=== PATIENT | male | born 1935 | race Caucasian/White ===

== ENCOUNTER 2019-11-05 23:48 | Inpatient (IN) | payer MEDICARE ==
[~2019-11-05] VITALS: Ht 182.9 cm; Wt 92.0 kg
[2019-11-06 00:20] LABS: BASO # 0.1 (0.0-0.2); BASO % 0.5 % (0.0-2.0); EOS # 0.1 (0.0-0.7); GRAN # 8.2 (1.4-6.5); GRAN % 77.6 % (42.2-75.2); HEMATOCRIT 45.5 % (42.0-52.0); HEMOGLOBIN 15.1 g/dl (13.5-18.0); INR 2.8 (0.8-3.0); LYMPH # 1.3 (1.2-3.4); LYMPH % 12.3 % (20.0-51.0); MEAN CELL VOLUME 93 fl (80.0-100.0); MEAN CORPUSCULAR HEMOGLOBIN 31 pg (27.0-31.0); MEAN CORPUSCULAR HGB CONC 33 g/dl (33.0-37.0); MEAN PLATELET VOLUME 11.4 fl (7.4-10.4); MONO # 0.9 (0.1-0.6); MONO % 8.2 % (1.7-9.3); PLATELET COUNT 257 K/mm3 (130-400); PROTHROMBIN TIME 33.3 SECONDS (9.7-12.8); RED BLOOD COUNT 4.88 M/mm3 (4.20-5.60); REDCELL DISTRIBUTION WIDTH-CV 13.5 % (11.5-14.5)
[2019-11-06 00:24] LABS: ALANINE AMINOTRANSFERASE 13 U/L (21-72); ALBUMIN 3.8 gm/dL (3.5-5.0); ALKALINE PHOSPHATASE 95 U/L (50-136); ANION GAP 11 mmol/L (7-16); AST,SGOT 15 U/L (15-37); BILIRUBIN,TOTAL 0.4 mg/dL (0.0-1.0); BLOOD UREA NITROGEN 32 mg/dL (9-20); CALCIUM 8.7 mg/dL (8.4-10.2); CARBON DIOXIDE 21 mmol/L (22-30); CHLORIDE 107 mmol/L (98-107); CREATININE, serum 1.65 (0.66-1.25); GLUCOSE 374 mg/dL (74-106); POTASSIUM 5.3 mmol/L (3.4-5.0); SODIUM 138 mmol/L (137-145); TOTAL PROTEIN 6.9 gm/dL (6.4-8.2)
[2019-11-06 00:35] LABS: TROPONIN-I < 0.012 ng/mL (0.000-0.035)
[2019-11-06] MEDS ORDERED: COUMADIN 5MG5 MG/TAB PO (01:00)
[2019-11-06] MEDS ORDERED: ARICEPT10 MG PO (01:01)
[2019-11-06] MEDS ORDERED: DITROPAN XL10 MG PO (01:01)
[2019-11-06] MEDS ORDERED: HYZAAR 25 MG-101 TAB PO (01:02)
--- NOTE | 2019-11-06 03:18 | NUR ---
PT ADMITTED TO ROOM 313 FROM ER PER CART. PT ORIENTED TO SELF AND PLACE ONLY. SLURRED SPEECH. SEE NEUROCHECK. IV NS AT 150CC/HR TO RT F/A. PT INCONT OF URINE. WEARS BRIEFS. WET AT THIS TIME. HX BLADDER INCONTINENCE.
[2019-11-06] MEDS ORDERED: GLUCOPHAGE1000 MG PO (03:32)
[2019-11-06] MEDS ORDERED: GLUCOTROL 5M5 MG/TAB PO (03:34)
[2019-11-06 04:40] VITALS: BP 119/60; PULSE 68; TEMP 98.3
[2019-11-06 08:47] VITALS: BP 133/66; PULSE 68; TEMP 98.2
[2019-11-06 09:45] LABS: CALCIUM 7.6 mg/dL (8.4-10.2); CREATININE, serum 1.34 (0.66-1.25); POTASSIUM 4.4 mmol/L (3.4-5.0)
[2019-11-06] MEDS ORDERED: DITROPAN 5MG TAB5 MG PO (11:10)
[2019-11-06] MEDS ORDERED: MULTI VITAMINS1 TAB PO (11:12)
--- NOTE | 2019-11-06 11:16 | NUR ---
De Icer Kit Assembler attended rounds with the clinical team. Patient to receive PT/ST today. SW met with patient to discuss discharge planning. Patient lives outside of [place], [place] with his , Carly. Patient could not recall her phone number at this time but states his work phone number is [phone]. Patient sees Dr. Aguiar for primary care and obtains medications from [facility] pharmacy with no difficulties. Patient does not use any DME. Patient reports he does not have Advance Directives but may be interested in setting them up after speaking with his . SW to continue to follow as needed.
[2019-11-06 12:39] VITALS: BP 125/62; PULSE 54; TEMP 98.3
--- NOTE | 2019-11-06 12:40 | NUR ---
Received malnutrition screen for existing tube feeding, however per discussion with patient's nurse, this was entered inaccurately. No other malnutrition risks indicated upon admission.
[2019-11-06 13:13] VITALS: BP 176/92; PULSE 82
--- NOTE | 2019-11-06 13:30 | NUR ---
At 1300 CURRICULUM COACH was in room with patient and yelled out to the desk for assistance. Entered room and patient was observed to be having a seizure. This lasted approximately 1 minute. Did resolve and patient began to blink eyes and follow commands. He was alert and oriented 10 minutes later. Answered questions appropriately and was understandable even with speech difficutlies. He does deny having seizure disorder. Did notify primary nurse and she came to assess patient.
--- NOTE | 2019-11-06 15:14 | NUR ---
SW met with the patient to discuss a discharge plan. The patient lives in [place] with his , Carly. The patient does not use DME and reports independence with ADLs. The patient's PCP is Dr. Aguiar and patient receives medications from [facility] with no difficulties. The patient does not have advanced directives in the EMR. The patient has a son, Fortino who also provides support, if needed. Upon discharge the patient will be transported home by his or son. donor services technician will continue to follow to ensure a safe discharge.
--- NOTE | 2019-11-06 15:36 | NUR ---
THIMAINE WAS ADMINSTERED, NOW INFUSING IV KEPPRA. NEUROS UNREMARKABLE. MINIMAL POST-ICTAL MENTAL STATUS CHANGES NOTED
--- NOTE | 2019-11-06 15:54 | NUR ---
PT REF LACTULOSE THIS AFTERNOON, STATED THAT SHE HAD 3 LARGE BM'S THIS AFTERNOON
[2019-11-06 16:34] VITALS: BP 122/84; PULSE 69; TEMP 98
--- NOTE | 2019-11-06 18:40 | NUR ---
PT SCOOTED OUT OF RECLINER AND LANDED ON COCCYX. CHAIR ALARM HAS BEEN ON AND UNDER PT ALL DAY, ALARM SOUNDED. THIS NURSE AND BRUSHER MACHINE ASSISTED PT TO COUCH, THEN LATER TO BED, PT WAS FALLING ASLEEP ON COUCH AND LEANING BENT OVER FORWARD. THIS NURSE NOTIFIED PROVIDER, NO NEW ORDERS, HEALTH SCREENER AND PT . PT DENIED C/O PAIN. APPEARED MORE SLEEPY THEN HAD EARLIER IN DAY, ALSO RECIEVED NEW MEDICATION DOSE OF KEPPRA THIS AFTERNOON. VITALS WNL, NEUROS UNREMARKABLE.
--- NOTE | 2019-11-06 20:30 | NUR ---
Initial shift assessment done- has been resting well, drowsy but wakes up- oriented follows commands- equal hand grasps- very slight trouble finding the right words- incontinent of large amount urine- bed changed-cleaned up. Bed alarm on. Tele on, IV fluids of NS at 150cc/hr
[2019-11-06 20:40] VITALS: BP 139/76; PULSE 75; TEMP 97.8
[2019-11-07 00:15] VITALS: BP 129/71; PULSE 69; TEMP 98.4
[2019-11-07 04:37] VITALS: BP 121/77; PULSE 75; TEMP 97.8
--- NOTE | 2019-11-07 06:02 | NUR ---
Quiet night- slept majority of the night- incontinent of large amounts of urine throughout the night- bed changedx2,, oriented to person/place- understands he is in the hospital - did not try to get out of bed- compliant-overall pleasant
[2019-11-07 06:29] LABS: BASO # 0.1 (0.0-0.2); BASO % 0.6 % (0.0-2.0); EOS # 0.2 (0.0-0.7); EOS % 2.3 % (0-4.0); GRAN # 7.1 (1.4-6.5); HEMATOCRIT 39.9 % (42.0-52.0); LYMPH # 1.3 (1.2-3.4); MEAN CELL VOLUME 96 fl (80.0-100.0); MEAN CORPUSCULAR HEMOGLOBIN 31 pg (27.0-31.0); MEAN CORPUSCULAR HGB CONC 33 g/dl (33.0-37.0); MEAN PLATELET VOLUME 11.6 fl (7.4-10.4); MONO % 10.6 % (1.7-9.3); PLATELET COUNT 225 K/mm3 (130-400); RED BLOOD COUNT 4.16 M/mm3 (4.20-5.60); REDCELL DISTRIBUTION WIDTH-CV 13.6 % (11.5-14.5)
[2019-11-07 06:47] LABS: INR 2.6 (0.8-3.0); PROTHROMBIN TIME 31.2 SECONDS (9.7-12.8)
[2019-11-07 07:13] LABS: CALCIUM 8.1 mg/dL (8.4-10.2); CREATININE, serum 1.4 (0.66-1.25); MAGNESIUM 1.4 mg/dL (1.6-2.3); POTASSIUM 3.9 mmol/L (3.4-5.0)
[2019-11-07 08:06] VITALS: BP 140/78; PULSE 66; TEMP 98.3
[2019-11-07 10:34] LABS: MAGNESIUM 1.5 mg/dL (1.6-2.3)
--- NOTE | 2019-11-07 11:33 | NUR ---
The patient is needing post acute rehab. MATTHIEU presented Medicare.gov's list of Inpatient Rehab and nursing homes. The patient's first choice is IPR at [facility] and second choice is [facility]. MATTHIEU informed Larisa, IPR Director and faxed referral to [facility]. SW awaiting responses. MATTHIEU attempted to contact, the patient's , Carly to inform her. There was no answer. manager support services will continue to follow.
[2019-11-07 12:05] VITALS: BP 136/84; PULSE 64; TEMP 98
[2019-11-07 13:17] LABS: CHOLESTEROL RISK RATIO 3.3
[2019-11-07 16:20] VITALS: BP 136/68; PULSE 57; TEMP 97.5
--- NOTE | 2019-11-07 16:28 | NUR ---
MATTHIEU contacted the patient's , Carly at at work and at home . She was in agreeance to post acute rehab. business services specialist sales will continue to follow.
--- NOTE | 2019-11-07 19:34 | NUR ---
PT HAD UNEVENTFUL DAY. PLEASENT AND COOPERTATIVE WITH CARES. WORKED WITH PT/OT THIS SHIFT.
--- NOTE | 2019-11-07 20:38 | NUR ---
Pt sleeping- easily arousable. No distress noted. Pt is oriented x4. Neuro check within normal limits. Seizure pads placed due to hx of seizure during stay. Respirations even and unlabored. Lungs clear. Abdomen distended, firm. BS+. No edema noted. Pt is incontient. Pt denies pain at this time. Pt has not eaten any of dinner. He states he is not hungry at this time.
[2019-11-07 21:18] VITALS: BP 132/60; PULSE 64; TEMP 97.8
[2019-11-08] VITALS (7 sets, daily range): BP systolic 132–153; BP diastolic 70–84; PULSE 52–71; TEMP 97.6–98.6
--- NOTE | 2019-11-08 01:54 | NUR ---
Promise DURAN called. Patients HR dropping in low 40s when sleeping. Pt is asymptomatic and HR increases into the 60s while awake. Call parameters changed to <40.
--- NOTE | 2019-11-08 05:45 | NUR ---
Pt sleeping. No distress noted. Easily arousable. Pt is alert and oriented. No neuro deficits noted. Seizure pads in place. Bed alarm on. No needs noted.
--- NOTE | 2019-11-08 07:20 | NUR ---
Report given to Stacie BRAGG.
[2019-11-08 09:16] LABS: BASO # 0.1 (0.0-0.2); BASO % 0.8 % (0.0-2.0); EOS # 0.2 (0.0-0.7); EOS % 2.4 % (0-4.0); GRAN # 4.7 (1.4-6.5); GRAN % 71.6 % (42.2-75.2); HEMATOCRIT 40.1 % (42.0-52.0); HEMOGLOBIN 13.1 g/dl (13.5-18.0); LYMPH % 14.7 % (20.0-51.0); MEAN CELL VOLUME 95 fl (80.0-100.0); MEAN CORPUSCULAR HEMOGLOBIN 31 pg (27.0-31.0); MEAN CORPUSCULAR HGB CONC 33 g/dl (33.0-37.0); MEAN PLATELET VOLUME 11.2 fl (7.4-10.4); MONO # 0.7 (0.1-0.6); MONO % 10.2 % (1.7-9.3); PLATELET COUNT 229 K/mm3 (130-400); RED BLOOD COUNT 4.22 M/mm3 (4.20-5.60); REDCELL DISTRIBUTION WIDTH-CV 13.3 % (11.5-14.5)
[2019-11-08 09:28] LABS: INR 2.6 (0.8-3.0); PROTHROMBIN TIME 31.3 SECONDS (9.7-12.8)
[2019-11-08 09:31] LABS: CALCIUM 8.5 mg/dL (8.4-10.2); CREATININE, serum 1.37 (0.66-1.25); POTASSIUM 4.4 mmol/L (3.4-5.0)
--- NOTE | 2019-11-08 10:00 | NUR ---
Pt assessment completed and charted. Morning medications administered per JAN. Pt A&O, easily arousable. LS cta, breathing even and unlabored. Heart RRR. BSx4. Pulses strong bilaterally. Pt denies pain at this time, pt denies dizziness, SOB, N/V/D. LFA INT IV flushes w/o complications. Seizure precaution pads in place. Neuro checks WNL. No other concerns expressed at this time. Call light within reach.
--- NOTE | 2019-11-08 18:23 | NUR ---
Pt assisted in showering, linen changed. No further concerns expressed.
--- NOTE | 2019-11-08 20:30 | NUR ---
Initial shift assessment done- denies pain, Tele on, pleasant, oriented, follows commands- equal hand grasps,, weakness, unstable gait when up- bed alarm on--incontinent of urine-cleaned up-bed changed
[2019-11-09 04:16] VITALS: BP 151/83; PULSE 66; TEMP 98.4
[2019-11-09 08:02] VITALS: BP 134/77; PULSE 74; TEMP 98.4
[2019-11-09 10:02] LABS: BASO % 0.6 % (0.0-2.0); EOS # 0.2 (0.0-0.7); EOS % 2.2 % (0-4.0); GRAN # 5.3 (1.4-6.5); GRAN % 73.3 % (42.2-75.2); HEMATOCRIT 40.9 % (42.0-52.0); HEMOGLOBIN 13.3 g/dl (13.5-18.0); LYMPH % 13.6 % (20.0-51.0); MEAN CELL VOLUME 95 fl (80.0-100.0); MEAN CORPUSCULAR HEMOGLOBIN 31 pg (27.0-31.0); MEAN CORPUSCULAR HGB CONC 33 g/dl (33.0-37.0); MEAN PLATELET VOLUME 11.8 fl (7.4-10.4); MONO # 0.7 (0.1-0.6); MONO % 9.9 % (1.7-9.3); PLATELET COUNT 238 K/mm3 (130-400); RED BLOOD COUNT 4.31 M/mm3 (4.20-5.60); REDCELL DISTRIBUTION WIDTH-CV 13.4 % (11.5-14.5)
[2019-11-09 10:17] LABS: CALCIUM 8.7 mg/dL (8.4-10.2); CREATININE, serum 1.53 (0.66-1.25); POTASSIUM 4.8 mmol/L (3.4-5.0)
--- NOTE | 2019-11-09 10:47 | NUR ---
Pt assessment completed and charted. Morning medications administered per JAN. Pt A&O, laying in bed. Pt denies pain at this time. Pt on room air, denies SOB, dizziness, chest pain, palpitations. Neuro checks WNL. LFA INT IV flushes w/o complications. Pt on tele. Pulses strong. Pt is incontinent, unable to collect sample for lab but per pt he "knows when he needs to go". Heart RRR, breathing even and unlabored. BS x4. Pulses strong bilaterally. LS clear. No other concerns noted.
[2019-11-09 11:24] VITALS: BP 137/88; PULSE 67; TEMP 98.3
[2019-11-09 16:30] VITALS: BP 141/63; PULSE 63; TEMP 98.4
--- NOTE | 2019-11-09 17:29 | NUR ---
Pt assisted to chair, incontinent in brief. Linen and brief change. Pt unable to tell nursing staff when he needs to go.
[2019-11-09 19:46] VITALS: BP 116/65; PULSE 52; TEMP 98
[2019-11-09 23:48] VITALS: BP 120/56; PULSE 87; TEMP 98.4
[2019-11-10 03:57] VITALS: BP 117/79; PULSE 75; TEMP 97.9
--- NOTE | 2019-11-10 04:07 | NUR ---
ASSESSMENT COMPLETE. SITTING ON BESIDE EATING DINNER. DENIES NEEDS AT THIS TIME.
[2019-11-10 06:33] LABS: COLLECTION METHOD CLEAN CATCH
[2019-11-10 06:41] LABS: PH 5 (5-8); SQUAMOUS EPITHELIAL None Seen /hpf; URINE APPEARANCE Clear; URINE BACTERIA None Seen /hpf; URINE BILIRUBIN Negative (NEGATIVE); URINE BLOOD Negative (NEGATIVE); URINE COLOR Yellow; URINE GLUCOSE 1+ (NEGATIVE); URINE KETONE Negative (NEGATIVE); URINE LEUKOCYTE ESTERASE Negative (NEGATIVE); URINE NITRATE Negative (NEGATIVE); URINE PROTEIN(semi-quant) Negative (NEGATIVE); URINE RBC 0-2 /hpf; URINE UROBILINOGEN Negative (NEGATIVE)
[2019-11-10 07:12] VITALS: BP 138/82; PULSE 69; TEMP 98.2
[2019-11-10 07:29] LABS: BASO # 0.1 (0.0-0.2); BASO % 0.9 % (0.0-2.0); EOS # 0.2 (0.0-0.7); EOS % 2.6 % (0-4.0); GRAN # 4.7 (1.4-6.5); GRAN % 68.9 % (42.2-75.2); HEMATOCRIT 39.9 % (42.0-52.0); HEMOGLOBIN 13.1 g/dl (13.5-18.0); LYMPH % 15.1 % (20.0-51.0); MEAN CELL VOLUME 94 fl (80.0-100.0); MEAN CORPUSCULAR HEMOGLOBIN 31 pg (27.0-31.0); MEAN CORPUSCULAR HGB CONC 33 g/dl (33.0-37.0); MEAN PLATELET VOLUME 11.6 fl (7.4-10.4); MONO # 0.8 (0.1-0.6); MONO % 11.9 % (1.7-9.3); PLATELET COUNT 235 K/mm3 (130-400); RED BLOOD COUNT 4.23 M/mm3 (4.20-5.60); REDCELL DISTRIBUTION WIDTH-CV 13.2 % (11.5-14.5)
[2019-11-10 07:42] LABS: CALCIUM 8.5 mg/dL (8.4-10.2); CREATININE, serum 1.66 (0.66-1.25); POTASSIUM 4.4 mmol/L (3.4-5.0)
[2019-11-10] MEDS ORDERED: ASPIRIN E.C. 8181 MG PO (08:24)
[2019-11-10] MEDS ORDERED: KEPPRA1000 MG PO (08:24)
[2019-11-10 08:45] LABS: INR 1.9 (0.8-3.0); PROTHROMBIN TIME 22.4 SECONDS (9.7-12.8)
--- NOTE | 2019-11-10 09:29 | NUR ---
Assessment completed, alert/oriented although difficult to assess orientation as patient is very sarcastic and jokes a lot, vital sign stable, denies any pain or discomfort, no neuro deficits noted, no weakness or physcial asymmetry observed, he is sitting up eating breakfast at this time, refusing any hygiene this morning, denies needs and hoping to go home
--- NOTE | 2019-11-10 10:45 | NUR ---
SW attended clinical rounds. The patient is to tentatively discharge today. Larisa, IPR Director, reports that they are not able to accept the patient and that time. MATTHIEU contacted and faxed updates to Cassie at [facility]. MATTHIEU met with the patient to update. The patient is in agreeance to going to [facility], if able to accept. MATTHIEU presented and explained the IM form to the patient. The patient verbalized understanding, signed, and he was provided a copy. MATTHIEU attempted to contact the patient's to update. There was no voicemail. SW to continue to follow.
[2019-11-10 11:38] VITALS: BP 122/60; PULSE 62; TEMP 97.9
--- NOTE | 2019-11-10 12:00 | NUR ---
Cassie, at [facility], reports that they are able to accept the patient for a skilled stay. MATTHIEU informed the patient and his , via phone. The patient is to discharge today, 11/10, to [facility] for a skilled stay. Transportation was scheduled for 1430, via [facility]. MATTHIEU informed the patient, his RN, and his via phone. They were all in agreeance to the time. No additional needs at this time.
[2019-11-10 14:22] VITALS: BP_SYST 0
--- NOTE | 2019-11-10 15:18 | NUR ---
Patient transferring to [facility], report called to receiving nursing staff at this time, IV and tele removed prior to discharge, leaving with [facility] staff member
== END 2019-11-10 15:22 | DRG 65 ==
LOC: COL.ER 23:48 → MEDICAL 11-06 01:34
PROVIDERS: Emergency Medicine; Nurse Practitioner Family; ADMIT Student in an Organized Health Care Education/Training Program
DX: I63.9 Cerebral infarction, unspecified (principal); D68.61 Antiphospholipid syndrome; N17.9 Acute kidney failure, unspecified; G31.9 Degenerative disease of nervous system, unspecified; Z86.73 Personal history of transient ischemic attack (TIA), and cerebral infarction without residual deficits; I48.91 Unspecified atrial fibrillation; Z79.01 Long term (current) use of anticoagulants; F02.80 Dementia in other diseases classified elsewhere, unspecified severity, without behavioral disturbance, psychotic disturbance, mood disturbance, and anxiety; R56.9 Unspecified convulsions; E83.42 Hypomagnesemia; N18.9 Chronic kidney disease, unspecified; I12.9 Hypertensive chronic kidney disease with stage 1 through stage 4 chronic kidney disease, or unspecified chronic kidney disease; G83.24 Monoplegia of upper limb affecting left nondominant side; E11.22 Type 2 diabetes mellitus with diabetic chronic kidney disease; E87.5 Hyperkalemia; E11.65 Type 2 diabetes mellitus with hyperglycemia; Z90.79 Acquired absence of other genital organ(s); Z79.84 Long term (current) use of oral hypoglycemic drugs
CPT/HCPCS: 99232-AI; 99239; A9585; J1815; J1953; J3411; J3475; J7030; Q9967

== ENCOUNTER → 2021-08-29 | Outpatient (CLI) | payer MEDICARE ==
[~2021-08-29] MED LIST: ARICEPT10 MG PO; ASPIRIN E.C. 8181 MG PO; COUMADIN 5MG5 MG/TAB PO; DITROPAN 5MG TAB5 MG PO; DITROPAN XL10 MG PO; GLUCOPHAGE1000 MG PO; GLUCOTROL 5M5 MG/TAB PO; HYZAAR 25 MG-101 TAB PO; KEPPRA1000 MG PO; MULTI VITAMINS1 TAB PO
== END ==
LOC: ZLAB.STJ 17:20 → ZCOL.LAB 17:20
DX: E11.22 Type 2 diabetes mellitus with diabetic chronic kidney disease (principal); F03.91 Unspecified dementia, unspecified severity, with behavioral disturbance

== ENCOUNTER 2021-10-26 11:41 | Emergency (ER) | payer MEDICARE ==
[~2021-10-26] VITALS: Ht 182.9 cm; Wt 102.3 kg
[2021-10-26 12:07] VITALS: TEMP 98.3
[2021-10-26 12:31] LABS: BASO % 0.5 % (0.0-2.0); EOS # 0.3 K/mm3 (0.0-0.7); EOS % 3.9 % (0-4.0); GRAN # 6.3 K/mm3 (1.4-6.5); GRAN % 75.4 % (42.2-75.2); HEMATOCRIT 47.2 % (42.0-52.0); HEMOGLOBIN 15.6 g/dl (13.5-18.0); LYMPH % 11.5 % (20.0-51.0); MEAN CELL VOLUME 94 fl (80.0-100.0); MEAN CORPUSCULAR HEMOGLOBIN 31 pg (27.0-31.0); MEAN CORPUSCULAR HGB CONC 33 g/dl (33.0-37.0); MONO # 0.7 K/mm3 (0.1-0.6); MONO % 8.3 % (1.7-9.3); PLATELET COUNT 243 K/mm3 (130-400); RED BLOOD COUNT 5.03 M/mm3 (4.20-5.60); REDCELL DISTRIBUTION WIDTH-CV 13.7 % (11.5-14.5)
[2021-10-26 12:50] LABS: ALBUMIN 3.6 gm/dL (3.4-4.8); BILIRUBIN,TOTAL 0.6 mg/dL (0.2-1.2); CALCIUM 9.1 mg/dL (8.4-10.2); CREATININE, serum 1.55 mg/dL (0.72-1.25); POTASSIUM 4.7 mmol/L (3.5-4.5); TOTAL PROTEIN 7.3 gm/dL (6.2-8.1)
[2021-10-26 12:56] LABS: TROPONIN-I 0.011 ng/mL (0.00-0.033)
[2021-10-26 14:48] VITALS: BP 134/88; PULSE 100
== END 2021-10-26 14:45 | disposition home or self-care (01) ==
LOC: COL.ER 11:41
PROVIDERS: Physician Assistant
DX: I16.0 Hypertensive urgency (principal); I10 Essential (primary) hypertension; E11.9 Type 2 diabetes mellitus without complications; F03.90 Unspecified dementia, unspecified severity, without behavioral disturbance, psychotic disturbance, mood disturbance, and anxiety; Z86.73 Personal history of transient ischemic attack (TIA), and cerebral infarction without residual deficits; Z79.82 Long term (current) use of aspirin; Z79.01 Long term (current) use of anticoagulants; Z79.84 Long term (current) use of oral hypoglycemic drugs; Z79.899 Other long term (current) drug therapy
CPT/HCPCS: J0360

== ENCOUNTER → 2021-11-07 | Outpatient (CLI) | payer MEDICARE ==
[2021-11-07 17:11] LABS: CALCIUM 9.1 mg/dL (8.4-10.2); CREATININE, serum 1.56 mg/dL (0.72-1.25); POTASSIUM 5.5 mmol/L (3.5-4.5)
[2021-11-07 17:32] LABS: THYROID STIMULATING HORMONE 0.994 uIU/mL (0.350-4.940)
== END ==
LOC: ZLAB.STJ 16:51
PROVIDERS: Internal Medicine
DX: M62.81 Muscle weakness (generalized) (principal)

== ENCOUNTER → 2021-11-22 | Outpatient (CLI) | payer MEDICARE | LOC: COL.RAD 09:22 | DX: R22.41 Localized swelling, mass and lump, right lower limb (principal) ==

== ENCOUNTER → 2021-12-13 | Outpatient (CLI) | payer MEDICARE | LOC: ZLAB.STJ 16:49 | DX: E11.22 Type 2 diabetes mellitus with diabetic chronic kidney disease (principal); N18.9 Chronic kidney disease, unspecified ==

== ENCOUNTER → 2021-12-26 | Outpatient (CLI) | payer MEDICARE, MEDICAID ==
[2021-12-26 12:22] LABS: CLOSTRIDIUM DIFF A/B NEG; CLOSTRIDIUM DIFF A/B INTERP No C.diff present
== END ==
LOC: ZLAB.STJ 10:44
PROVIDERS: Internal Medicine
DX: Z01.89 Encounter for other specified special examinations (principal)

== ENCOUNTER 2022-07-18 08:29 | Inpatient (IN) | payer MEDICARE, MEDICAID ==
[2022-07-18] VITALS (10 sets, daily range): BP systolic 119–142; BP diastolic 71–96; PULSE 74–90; TEMP 97.7–99.1
[~2022-07-18] VITALS: Wt 94.8 kg
[2022-07-18 09:32] LABS: HEMATOCRIT 45.1 % (42.0-52.0); HEMOGLOBIN 14.1 g/dl (13.5-18.0); MEAN CELL VOLUME 98 fl (80.0-100.0); MEAN CORPUSCULAR HEMOGLOBIN 31 pg (27-31); MEAN CORPUSCULAR HGB CONC 31 g/dl (33.0-37.0); MEAN PLATELET VOLUME 10.9 fl (7.4-10.4); PLATELET COUNT 230 K/mm3 (130-400); RED BLOOD COUNT 4.59 M/mm3 (4.20-5.60)
[2022-07-18 09:58] LABS: ALBUMIN 3.2 gm/dL (3.4-4.8); BILIRUBIN,TOTAL 0.9 mg/dL (0.2-1.2); CALCIUM 8.9 mg/dL (8.4-10.2); POTASSIUM 4.2 mmol/L (3.5-4.5); TOTAL PROTEIN 6.6 gm/dL (6.2-8.1)
[2022-07-18 10:09] LABS: BAND 2 % (0-10); HYPOCHROMIA 2+; LYMPHOCYTE 1 % (20.0-51.0); NEUTROPHILS 97 % (42.0-75.2); PLATELET ESTIMATE NORMAL (NORMAL); TOXIC GRANULATION PRESENT
[2022-07-18 10:18] LABS: TSH w REFLEX 0.727 uIU/mL (0.350-4.940)
[2022-07-18 10:22] LABS: TROPONIN-I 0.045 ng/mL (0.00-0.033)
[2022-07-18 11:25] LABS: AMORPHOUS CRYSTAL Present (NOT PRESENT); MUCOUS Present (NOT PRESENT); SQUAMOUS EPITHELIAL 0-2 /hpf (0-10); URINE BACTERIA Moderate /hpf (NONE SEEN); URINE RBC >50 /hpf (0-2)
[2022-07-18 11:26] LABS: URINE APPEARANCE Hazy (CLEAR/HAZY); URINE COLOR Yellow (YELLOW); URINE GLUCOSE 2+ (NEGATIVE); URINE PROTEIN(semi-quant) 2+ (NEGATIVE)
[2022-07-18 11:27] LABS: URINE BLOOD 3+ (NEGATIVE); URINE KETONE TRACE (NEGATIVE); URINE NITRATE Positive (NEGATIVE); URINE UROBILINOGEN 0.2 E.U/dL (0.2-1.0)
[2022-07-18] MEDS ORDERED: APRESOLINE50 MG PO (12:30)
[2022-07-18] MEDS ORDERED: COUMADIN4 MG PO (12:31)
[2022-07-18] MEDS ORDERED: NORVASC 5MG5 MG/TAB PO (12:32)
[2022-07-18 12:33] LABS: INR 1.6 (0.8-3.0); PROTHROMBIN TIME 18.8 SECONDS (9.7-12.8)
[2022-07-18] MEDS ORDERED: COZAAR100 MG PO (12:33)
[2022-07-18] MEDS ORDERED: TYLENOL 325MG325 MG PO (13:12)
--- NOTE | 2022-07-18 16:20 | NUR ---
unavailable at the time for procedure, spoke with patients son-second DPOA. He agreed with having the procedure for stone removal and stent placement. Pt left for procedure at this time.
--- NOTE | 2022-07-18 22:05 | NUR ---
Patient assessed around 1954. Denies pain and discomfort. Peripheral IV to left hand, IV fluids running per orders. Has cough, unable to observe sputum. LS CTA in upper lobes, diminished in lower. On oxygen at 2 L/min via NC. Indwelling dumont catheter patent, with cloudy, tea colored urine. Voices no questions, needs, or concerns at this time. In bed with call light within reach. High fall risk precautions in place. Bed alarm on.
[2022-07-19 00:11] VITALS: BP 139/77; PULSE 76; TEMP 98.9
[2022-07-19 05:18] VITALS: BP 153/89; PULSE 91; TEMP 98.1
--- NOTE | 2022-07-19 05:45 | NUR ---
Received IV ABX and IV fluids per orders during the night. White catheter with kenn urine, sediment present. Continues on oxygen at 2 L/min via NC. In bed with call light within reach. High fall risk precautions in place. Bed alarm on.
[2022-07-19 06:36] LABS: HEMATOCRIT 37.1 % (42.0-52.0); MEAN CELL VOLUME 95 fl (80.0-100.0); MEAN CORPUSCULAR HEMOGLOBIN 31 pg (27-31); MEAN CORPUSCULAR HGB CONC 33 g/dl (33.0-37.0); MEAN PLATELET VOLUME 11.6 fl (7.4-10.4); PLATELET COUNT 199 K/mm3 (130-400); RED BLOOD COUNT 3.92 M/mm3 (4.20-5.60); REDCELL DISTRIBUTION WIDTH-CV 13.9 % (11.5-14.5)
[2022-07-19 06:38] LABS: INR 1.8 (0.8-3.0); PROTHROMBIN TIME 20.4 SECONDS (9.7-12.8)
[2022-07-19 06:57] LABS: ALBUMIN 2.8 gm/dL (3.4-4.8); CREATININE, serum 1.64 mg/dL (0.72-1.25); MAGNESIUM 1.7 mg/dL (1.6-2.6); PHOSPHOROUS 3.3 mg/dL (2.3-4.7); POTASSIUM 4.5 mmol/L (3.5-4.5)
[2022-07-19 06:58] LABS: HEMOGLOBIN 12.1 g/dl (13.5-18.0)
[2022-07-19 07:12] VITALS: BP 130/72; PULSE 69; TEMP 98.5
--- NOTE | 2022-07-19 08:00 | NUR ---
Patient is resting in bed, easily arousable. Alert but partially oriented. Telemetry in place, NSR. Catheter dumont in place, yellow cloudy output. Getting LR AR 125 ML/HR. Assessment completed, no other needs at this time. Call light within reach.
[2022-07-19 08:34] LABS: LYMPHOCYTE 10 % (20.0-51.0); NEUTROPHILS 84 % (42.0-75.2)
[2022-07-19 08:35] LABS: HYPOCHROMIA 1+; PLATELET ESTIMATE NORMAL (NORMAL)
--- NOTE | 2022-07-19 10:10 | NUR ---
Initial visit; Patient thanked Proctologist for looking in on him and offering Spiritual Care. Patient quiet and appears to be doing alright at this time.
[2022-07-19 11:28] LABS: COLLECTION METHOD CATHETER
[2022-07-19 11:49] VITALS: BP 129/73; PULSE 65; TEMP 97.6
--- NOTE | 2022-07-19 13:44 | NUR ---
Jewel Bearing Grinder contacted patient's son, Fortino (ph#[phone]) as patient has not been oriented. Fortino confirmed patient lives at [facility] and sees Dr. Aguiar for primary care. Fortino is in agreement with plan of discharge back to [facility] when medically ready for discharge. MATTHIEU contacted Calderon at [facility] and faxed clinical updates. MATTHIEU requested DPOA-HC paperwork be faxed in. Discharge Plan: [facility]
[2022-07-19 16:10] VITALS: BP 144/78; PULSE 73; TEMP 98.8
[2022-07-19 19:58] VITALS: BP 155/91; PULSE 76; TEMP 98.7
--- NOTE | 2022-07-19 22:47 | NUR ---
Patient assessed around 2039. Denies pain and discomfort when asked. On oxygen at 1 L/min via NC. BS was 100, scheduled to have 15 units of Levemir. Called APRIL Phillips. Order to hold Levemir tonight. Patient in bed with call light within reach. High fall risk precautions in place.
[2022-07-20 00:37] VITALS: BP 158/82; PULSE 70; TEMP 97.9
[2022-07-20 04:52] VITALS: BP 158/89; PULSE 69; TEMP 98.2
--- NOTE | 2022-07-20 05:43 | NUR ---
Patient continues on IV ABX per orders. Has voiced no questions, needs, or concerns at this time. Denies having pain and discomfort when asked. In bed with call light within reach. High fall risk precautions in place. Bed alarm on.
[2022-07-20 06:25] LABS: BASO # 0.1 K/mm3 (0.0-0.2); BASO % 0.6 % (0.0-2.0); EOS # 0.2 K/mm3 (0.0-0.7); EOS % 1.6 % (0.0-4.0); GRAN # 11.3 K/mm3 (1.4-6.5); GRAN % 81.5 % (42.2-75.2); HEMATOCRIT 38.5 % (42.0-52.0); HEMOGLOBIN 12.4 g/dl (13.5-18.0); LYMPH # 0.9 K/mm3 (1.2-3.4); LYMPH % 6.1 % (20.0-51.0); MEAN CELL VOLUME 95 fl (80.0-100.0); MEAN CORPUSCULAR HEMOGLOBIN 31 pg (27-31); MEAN CORPUSCULAR HGB CONC 32 g/dl (33.0-37.0); MEAN PLATELET VOLUME 11.2 fl (7.4-10.4); MONO # 1.3 K/mm3 (0.1-0.6); MONO % 9.6 % (1.7-9.3); PLATELET COUNT 198 K/mm3 (130-400); RED BLOOD COUNT 4.06 M/mm3 (4.20-5.60); REDCELL DISTRIBUTION WIDTH-CV 13.5 % (11.5-14.5)
[2022-07-20 06:46] LABS: ALBUMIN 2.8 gm/dL (3.4-4.8); CALCIUM 9.3 mg/dL (8.4-10.2); CREATININE, serum 1.37 mg/dL (0.72-1.25); MAGNESIUM 1.7 mg/dL (1.6-2.6); PHOSPHOROUS 3.1 mg/dL (2.3-4.7); POTASSIUM 4.4 mmol/L (3.5-4.5)
[2022-07-20 07:54] VITALS: BP 143/69; PULSE 63; TEMP 97.9
--- NOTE | 2022-07-20 10:56 | NUR ---
Business Associate faxed clinical updates to Calderon at [facility]. SW also faxed clinicals to [facility] for authorization for SNF upon discharge.
--- NOTE | 2022-07-20 11:01 | NUR ---
Patient alert to name and month/day of , unable to answer year. Alert to being in hospital. No complaints of pain. Patient with very flat affect, and withdrawn. Bowels active, urine draining into dumont bag yellow, cloudy. Patient resting in bed. discussed with provider discontinuing telemetry and switching iv meds to po, as patient's iv as infiltrated.
[2022-07-20 11:36] VITALS: BP 159/86; PULSE 67; TEMP 97.8
[2022-07-20 16:27] VITALS: BP 158/84; PULSE 69; TEMP 97.9
--- NOTE | 2022-07-20 17:49 | NUR ---
Patient very withdrawn today. Difficult to extract any interaction. Patient independently eats and drinks. However patient unaware of bowel movements in bed. Patient prefers to lay in bed almost sides ways, and sleep very contracted. White still in place, draining yellow urine, cloudy with sediment. No complaints of pain. No attempts to get out of bed. Fall precuations in place.
[2022-07-20 21:05] VITALS: BP 142/99; PULSE 67; TEMP 97.4
--- NOTE | 2022-07-21 00:20 | NUR ---
THE SHIFT ASSESSMENT WAS COMPLETED AT 09:15 PM. NO S/S OF DISTRESS NOTED UPON ASSESSMENT. THE PATIENT DOES NOT HAVE A PIV. THE PATIENT DENIED PAIN. CALL LIGHT WITHIN REACH WELL OTHER PERSONAL BELONGINGS.
[2022-07-21 00:29] VITALS: BP 156/89; PULSE 71; TEMP 97.4
[2022-07-21 04:06] VITALS: BP 149/86; PULSE 83; TEMP 98.2
--- NOTE | 2022-07-21 06:14 | NUR ---
THE PATIENT SLEPT WELL OVER NIGHT. NO S/S OF DISTRESS. THE PATIENT DENIED PAIN. CALL LIGHT WITHIN REACH AND BED IN LOW POSITION.
[2022-07-21 07:20] LABS: BASO # 0.1 K/mm3 (0.0-0.2); BASO % 0.6 % (0.0-2.0); EOS # 0.2 K/mm3 (0.0-0.7); EOS % 1.9 % (0.0-4.0); GRAN # 8.5 K/mm3 (1.4-6.5); GRAN % 79.8 % (42.2-75.2); HEMATOCRIT 41.6 % (42.0-52.0); HEMOGLOBIN 13.7 g/dl (13.5-18.0); LYMPH # 0.8 K/mm3 (1.2-3.4); LYMPH % 7.9 % (20.0-51.0); MEAN CELL VOLUME 94 fl (80.0-100.0); MEAN CORPUSCULAR HEMOGLOBIN 31 pg (27-31); MEAN CORPUSCULAR HGB CONC 33 g/dl (33.0-37.0); MEAN PLATELET VOLUME 11.1 fl (7.4-10.4); MONO % 9.3 % (1.7-9.3); PLATELET COUNT 217 K/mm3 (130-400); RED BLOOD COUNT 4.43 M/mm3 (4.20-5.60); REDCELL DISTRIBUTION WIDTH-CV 13.2 % (11.5-14.5)
[2022-07-21 07:23] LABS: INR 1.3 (0.8-3.0); PROTHROMBIN TIME 15.5 SECONDS (9.7-12.8)
[2022-07-21 07:44] LABS: CALCIUM 9.3 mg/dL (8.4-10.2); CREATININE, serum 1.22 mg/dL (0.72-1.25); MAGNESIUM 1.7 mg/dL (1.6-2.6); PHOSPHOROUS 2.9 mg/dL (2.3-4.7); POTASSIUM 4.5 mmol/L (3.5-4.5)
[2022-07-21 07:48] VITALS: BP 159/85; PULSE 74; TEMP 97.6
[2022-07-21] MEDS ORDERED: CEFTIN500 MG PO (08:22)
--- NOTE | 2022-07-21 10:00 | NUR ---
pt vss, alert and orient x1, deue medications given no adverse effects noted, denies complaints. dumont catheter removed without a problem pt given urinal bedside.
--- NOTE | 2022-07-21 10:08 | NUR ---
Follow-up visit; Patient thanked Apple Thinner for checking on him again today and said he thinks he is better. Apple Thinner wished patient well and offered God's blessings.
[2022-07-21 11:56] VITALS: BP 148/77; PULSE 76; TEMP 98.4
--- NOTE | 2022-07-21 12:30 | NUR ---
pt dc from the unit to [place], dc summary packet given to the [facility] transport person with instruction to hand it to the nurse.verbalize understanding.pt escorted out of the unit in a wheelchair in company of [facility] staff.
--- NOTE | 2022-07-21 13:00 | NUR ---
Business Office Associate contacted [facility] and was advised that patient's plan does not require prior auth before discharge to SNF. Ref #[id number]. MATTHIEU contacted Calderon and advised patient is ready for discharge today. Transport time set for 1230 and time was provided to patient's son, Fortino who is in agreement with discharge today. MATTHIEU faxed discharge orders and negative covid results to Calderon at [facility]. Discharge Plan: [facility]
--- NOTE | 2022-07-21 13:48 | NUR ---
pt report called to [facility] and given to nurse Jackman
== END 2022-07-21 12:30 | DRG 853 ==
LOC: COL.ER 08:29 → MEDICAL 11:32
PROVIDERS: Emergency Medicine; Physician Assistant; Urology; ADMIT Internal Medicine
PROC: 0T768DZ Dilation of Right Ureter with Intraluminal Device, Via Natural or Artificial Opening Endoscopic (ICD-10-PCS; principal; 2022-07-18 16:30)
PROC: BT1D1ZZ Fluoroscopy of Right Kidney, Ureter and Bladder using Low Osmolar Contrast (ICD-10-PCS; 2022-07-18 16:30)
DX: A41.9 Sepsis, unspecified organism (principal); J96.01 Acute respiratory failure with hypoxia; G93.41 Metabolic encephalopathy; E87.2 Acidosis; N17.9 Acute kidney failure, unspecified; N13.6 Pyonephrosis; D68.61 Antiphospholipid syndrome; I24.8 Other forms of acute ischemic heart disease; C64.2 Malignant neoplasm of left kidney, except renal pelvis; G30.9 Alzheimer's disease, unspecified; E11.65 Type 2 diabetes mellitus with hyperglycemia; I12.9 Hypertensive chronic kidney disease with stage 1 through stage 4 chronic kidney disease, or unspecified chronic kidney disease; I48.91 Unspecified atrial fibrillation; E11.22 Type 2 diabetes mellitus with diabetic chronic kidney disease; Z20.822 Contact with and (suspected) exposure to COVID-19; G40.909 Epilepsy, unspecified, not intractable, without status epilepticus; F02.80 Dementia in other diseases classified elsewhere, unspecified severity, without behavioral disturbance, psychotic disturbance, mood disturbance, and anxiety; B96.20 Unspecified Escherichia coli [E. coli] as the cause of diseases classified elsewhere; N18.30 Chronic kidney disease, stage 3 unspecified; G47.33 Obstructive sleep apnea (adult) (pediatric); Z85.46 Personal history of malignant neoplasm of prostate; Z88.0 Allergy status to penicillin; Z79.82 Long term (current) use of aspirin; Z79.84 Long term (current) use of oral hypoglycemic drugs; Z79.01 Long term (current) use of anticoagulants; Z90.79 Acquired absence of other genital organ(s); Z86.73 Personal history of transient ischemic attack (TIA), and cerebral infarction without residual deficits
CPT/HCPCS: 99239; A4314; C1769; C2617; J0330; J0692; J1815; J2185; J2370; J2405; J2704; J3010; J3370; J7050; J7120; Q9966

== ENCOUNTER 2022-09-05 13:22 | Day surgery (SDC) | payer MEDICARE, MEDICAID ==
[2022-09-05] VITALS (8 sets, daily range): BP systolic 107–130; BP diastolic 64–78; PULSE 66–108; TEMP 97–98.2
[~2022-09-05] VITALS: Ht 182.9 cm; Wt 1.0 kg
[~2022-09-05 13:22] MED LIST changes: +APRESOLINE50 MG PO; +CEFTIN500 MG PO; +COUMADIN4 MG PO; +COZAAR100 MG PO; +NORVASC 5MG5 MG/TAB PO; +TYLENOL 325MG325 MG PO
--- NOTE | 2022-09-05 15:27 | NUR ---
Pt recalled from [facility] waiting room at 1415; pt was sitting by himself in a wheelchair, verbalized his name and . Upon getting back to [place] [facility], pt was unable to verbalize the procedure he was having. RN, commercial insurance underwriter, contacted [facility] and they were not able to send anyone to assist, RN notified Provider to update, RN left a message for pts son (responsible constitution party), and made another call to pts . Pt's was unaware he was to have a procedure today. RN received a return call from pt's son, stated he had the surgery scheduled for tomorrow, though completed verbal consent on the phone and was witnessed by another RN. Assisted pt in removing clothes and putting on gown; VSS, though HR 108. Prior to surgery pt is A&Ox2, being to self and place. Son to arrive to answer other questions.
--- NOTE | 2022-09-05 15:27 | NUR ---
Pt recalled from [facility] waiting room at 1415; pt was sitting by himself in a wheelchair, verbalized his name and . Upon getting back to [place] [facility], pt was unable to verbalize the procedure he was having. RN, curriculum writer, contacted [facility] and they were not able to send anyone to assist, RN notified Provider to update, RN left a message for pts son (responsible constitution party), and made another call to pts . Pt's was unaware he was to have a procedure today. RN received a return call from pt's son, stated he had the surgery scheduled for tomorrow, though completed verbal consent on the phone and was witnessed by another RN. Assisted pt in removing clothes and putting on gown; VSS, though HR 108. Prior to surgery pt is A&Ox2, being to self and place. Son to arrive to answer other questions.
[2022-09-05] MEDS ORDERED: DITROPAN 5MG TAB5 MG PO (15:32)
[2022-09-05] MEDS ORDERED: ARICEPT10 MG PO (15:33)
--- NOTE | 2022-09-05 15:56 | NUR ---
Preop report given to Surgical thermal cutter hand, relaying info of pts A&O status and from [facility]; son in waiting room, to accompany pt to Room 345 postop; personal belongings and wheelchair placed in PACU with pt stickers.
--- NOTE | 2022-09-05 15:56 | NUR ---
Preop report given to Surgical manager product management, relaying info of pts A&O status and from [facility]; son in waiting room, to accompany pt to Room 345 postop; personal belongings and wheelchair placed in PACU with pt stickers.
--- NOTE | 2022-09-05 17:31 | NUR ---
Patient received to the unit lethargic. Alert and oriented to name. Patient is on 02 3L/NC, bowel sounds active and pulses are presents. VSS. Will continue to monitor patient.
--- NOTE | 2022-09-05 17:58 | NUR ---
Patient sleeping comfortable, O2 3L/NC in use. IVF LR on gravity. Patient not in any distress. Vital signs stable.
--- NOTE | 2022-09-05 17:58 | NUR ---
Patient sleeping comfortable, O2 3L/NC in use. IVF LR on gravity. Patient not in any distress. Vital signs stable.
--- NOTE | 2022-09-05 22:56 | NUR ---
SHIFT REPORT FROM MOLINA BRAGG. PATIENT POSTOP VSS. DENIES PAIN. TOLERATED X2 CHOCOLATE ICECREAMS AND WATER. REFUSED TO ATTEMPT TO PEE. NOTIFIED DR. LI AND ANDREW TO DISCHARGE BEFORE URINATION PATIENT IS INCONTINENT. CALL PLACED TO SON DANAE, AND NOTIFIED OF TRANSFER BACK TO [facility], SON IN AGREEANCE AND VERBAL SIGNATURE FOR DC PAPERWORK. NOTIFIED [facility] OF PATIENTS DISCHARGE. PATIENT ASSISTED TO CHANGE INTO CLOTHES, AND PATIENT HAD LARGE EPISODE OF URINARY INCONTINENCE. IV TO L HAND DISCONTINUED. PATIENT DISCHARGED AT 2044 TO [facility] WITH [facility] STAFF.
--- NOTE | 2022-09-05 22:56 | NUR ---
SHIFT REPORT FROM MOLINA BRAGG. PATIENT POSTOP VSS. DENIES PAIN. TOLERATED X2 CHOCOLATE ICECREAMS AND WATER. REFUSED TO ATTEMPT TO PEE. NOTIFIED DR. LI AND ANDREW TO DISCHARGE BEFORE URINATION PATIENT IS INCONTINENT. CALL PLACED TO SON DANAE, AND NOTIFIED OF TRANSFER BACK TO [facility], SON IN AGREEANCE AND VERBAL SIGNATURE FOR DC PAPERWORK. NOTIFIED [facility] OF PATIENTS DISCHARGE. PATIENT ASSISTED TO CHANGE INTO CLOTHES, AND PATIENT HAD LARGE EPISODE OF URINARY INCONTINENCE. IV TO L HAND DISCONTINUED. PATIENT DISCHARGED AT 2044 TO [facility] WITH [facility] STAFF.
== END 2022-09-05 20:45 | disposition home or self-care (01) ==
LOC: SDCO 13:22 → SURG 19:10 → SDCO 20:45
DX: N20.1 Calculus of ureter (principal); N39.41 Urge incontinence; E11.22 Type 2 diabetes mellitus with diabetic chronic kidney disease; I12.9 Hypertensive chronic kidney disease with stage 1 through stage 4 chronic kidney disease, or unspecified chronic kidney disease; N18.30 Chronic kidney disease, stage 3 unspecified; E66.9 Obesity, unspecified; G47.33 Obstructive sleep apnea (adult) (pediatric); Z79.84 Long term (current) use of oral hypoglycemic drugs; Z85.46 Personal history of malignant neoplasm of prostate
CPT/HCPCS: OP; C1769; J0690; J2405; J2704; J3010; J7120